=== PATIENT | female | born 2000 | race Caucasian/White ===

== ENCOUNTER 2020-06-07 20:08 | Emergency (ER) | payer OTHER ==
[~2020-06-07] VITALS: Ht 170.2 cm; Wt 102.5 kg
[2020-06-07] MEDS ORDERED: PROMETH-CODEIN 65 ML PO (23:16)
[2020-06-07] MEDS ORDERED: DULOXETINE HCL60 MG PO (23:26)
[2020-06-07] MEDS ORDERED: TOPAMAX100 MG PO (23:27)
[2020-06-07] MEDS ORDERED: FAMOTIDINE 20 M20 MG PO (23:27)
[2020-06-07 23:28] VITALS: BP 143/88
[2020-06-07] MEDS ORDERED: CHILDREN'S ZYRT10 M1 PO (23:28)
== END 2020-06-07 23:29 | disposition home or self-care (01) ==
LOC: ER 20:08
DX: R05 Cough (principal); R06.02 Shortness of breath; R50.9 Fever, unspecified; R07.89 Other chest pain; F32.9 Major depressive disorder, single episode, unspecified; F41.9 Anxiety disorder, unspecified; K21.9 Gastro-esophageal reflux disease without esophagitis; Z79.899 Other long term (current) drug therapy